=== PATIENT | male | born 2000 | race Caucasian/White ===

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

== ENCOUNTER 2020-06-09 13:01 | Emergency (ER) | payer OTHER, SELFPAY ==
[~2020-06-09] VITALS: Ht 180.3 cm; Wt 68.0 kg
[2020-06-09 13:08] VITALS: BP 121/59
--- NOTE | 2020-06-09 13:14 | NUR ---
PT TAKEN TO BED 9.
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
[2020-06-09 15:00] VITALS: BP 121/59
--- NOTE | 2020-06-09 15:00 | NUR ---
Patient discharged with v/s stable. Written and verbal after care instructions about avulsion fracture of the hand given and explained. Patient verbalized understanding. Ambulatory with steady gait. All questions addressed prior to discharge. Advised to follow up with PMD.
== END 2020-06-09 15:00 | disposition home or self-care (01) ==
LOC: MED 13:01
DX: S62.606A Fracture of unspecified phalanx of right little finger, initial encounter for closed fracture (principal); X58.XXXA Exposure to other specified factors, initial encounter; Y93.89 Activity, other specified; Y92.89 Other specified places as the place of occurrence of the external cause; Y99.8 Other external cause status
CPT/HCPCS: 73140; 99283